=== PATIENT | female | born 1990 | race Caucasian/White ===

== ENCOUNTER 2017-05-30 19:11 | Observation (INO) | payer BC ==
[2016-09-04 20:00] VITALS: BP 118/70
[2017-05-30] MEDS ORDERED: RINGER'S SOLUTION,LACTATED 1,000 ML IV PRN (19:43)
[2017-05-30 20:07] LABS: Hematocrit 29.6 % (37.0-47.0); Hemoglobin 9.8 gm/dL (12.5-16.0); Mean Cell Volume 84.6 fl (78-100); Mean Corpuscular Hgb Conc 33.1 g/dl (32-36); Mean Platelet Volume 10.3 fl (6.0-9.5); Neutrophil # 7.2 K/mm3 (1.3-6.0); Neutrophil % 70.8 % (42-75.0); Platelet Count 143 K/mm3 (150-450); Red Cell Distribution Width 13.9 % (11.5-14.0); White Blood Count 10.1 K/mm3 (4.0-10.5)
[2017-05-30 20:10] LABS: Urine Appearance Clear; Urine Bacteria None Seen; Urine Bilirubin Negative (NEGATIVE); Urine Blood Negative /ul (NEGATIVE); Urine Color Yellow; Urine Ketone Negative (NEGATIVE); Urine Nitrite Negative (NEGATIVE); Urine Protein Negative (NEGATIVE); Urine RBC None Seen /hpf (0-5); Urine Specific Gravity 1.005 SP.GR. (1.005-1.010); Urine Urobilinogen Normal (NORMAL); Urine WBC None Seen /hpf (0-5); Urine pH 7.5 pH (5.0-7.0)
[2017-05-30] MEDS ORDERED: BETAMETH ACET/BETAMET SOD PHOS 6 MG/ML VIAL IM ONE (20:45)
[2017-05-30] MEDS ORDERED: DEXTROSE 5%-LACTATED RINGERS 1,000 ML IV PRN (20:51)
[2017-05-30] MEDS ORDERED: PENICILLIN G POTASSIUM 5 MILLIONUNT in DEXTROSE 5 % IN WATER 100 ML IV ONE ×2 (20:51)
[2017-05-30] MEDS ORDERED: MAGNESIUM SULFATE IN WATER 50 ML, MAGNESIUM SULFATE IN WATER 50 ML IV ONE ×2 (20:51)
[2017-05-30] MEDS ORDERED: MAGNESIUM SULFATE IN WATER 1,000 ML IV SCH (21:00)
[2017-05-30 21:10] LABS: Albumin * 2.8 gm/dl (3.4-5.0); Anion Gap 14.1 mmol/L (6.8-13.8); BUN/Creatinine Ratio 14.3 (9.0-21.6); Bilirubin, Total 0.2 mg/dL (0.0-1.1); Calcium * 8.4 mg/dL (7.9-10.9); Carbon Dioxide 25.9 mmol/L (24-32.6); Total Protein 5.9 gm/dL (6.2-8.2)
[2017-05-30 22:02] LABS: Cocaine Ur Negative (NEGATIVE); Urine Barbiturate Negative (NEGATIVE); Urine Benzodiazepines Negative (NEGATIVE); Urine Opiates Negative (NEGATIVE); Urine PCP Negative (NEGATIVE); Urine THC Negative (NEGATIVE)
[2017-05-31] MEDS ORDERED: PENICILLIN G POTASSIUM 2.5 MILLIONUNT in DEXTROSE 5 % IN WATER 100 ML IV SCH ×2 (00:52)
== END 2017-05-30 21:50 | disposition short-term general hospital (02) ==
LOC: OBCLINIC 19:11 → INTOOBSV 20:59 → OB 20:59
PROVIDERS: ADMIT Obstetrics & Gynecology; ATTEND Obstetrics & Gynecology
DX: O60.02 Preterm labor without delivery, second trimester (principal); Z3A.24 24 weeks gestation of pregnancy; O23.42 Unspecified infection of urinary tract in pregnancy, second trimester; O46.92 Antepartum hemorrhage, unspecified, second trimester; O99.012 Anemia complicating pregnancy, second trimester; O99.112 Other diseases of the blood and blood-forming organs and certain disorders involving the immune mechanism complicating pregnancy, second trimester; O99.332 Smoking (tobacco) complicating pregnancy, second trimester
CPT/HCPCS: 36415; 59025; 80053; 80307; 81001; 85025; 86850; 86900; 87081; 96374; 96375; G0378

== ENCOUNTER 2017-07-12 13:28 | Observation (INO) | payer BC ==
[2017-07-12] MEDS ORDERED: RINGER'S SOLUTION,LACTATED 1,000 ML IV ONE (14:05)
[2017-07-12] MEDS ORDERED: MAGNESIUM SULFATE IN WATER 1,000 ML IV PRN (14:06)
[2017-07-12] MEDS ORDERED: MAGNESIUM SULFATE IN WATER 50 ML, MAGNESIUM SULFATE IN WATER 50 ML IV ONE ×2 (14:06)
[2017-07-12] MEDS ORDERED: PENICILLIN G POTASSIUM 5 MILLIONUNT in DEXTROSE 5 % IN WATER 100 ML IV ONE ×2 (14:07)
[2017-07-12] MEDS ORDERED: BETAMETH ACET/BETAMET SOD PHOS 6 MG/ML VIAL IM ONE (14:15)
[2017-07-12] MEDS ORDERED: BETAMETH ACET/BETAMET SOD PHOS 6 MG/ML VIAL ONE (14:18)
[2017-07-12] MEDS ORDERED: MAGNESIUM SULFATE IN WATER 50 ML IV ONE (14:22)
[2017-07-12] MEDS ORDERED: RINGER'S SOLUTION,LACTATED 1,000 ML IV PRN (14:57)
[2017-07-12] MEDS ORDERED: FLUCONAZOLE 150 MG TABLET PO ONE (15:30)
[2017-07-12] MEDS ORDERED: FLUCONAZOLE 40 MG/ML PO ONE (16:30)
[2017-07-12] MEDS ORDERED: CALCIUM GLUCONATE 4.65 MEQ/10 ML VIAL IV ONE (17:05)
[2017-07-12 18:07] VITALS: BP 126/90
--- NOTE | 2017-07-15 11:53 | DS ---
(1) labor in third trimester Problem: Acute (2) Short cervix affecting Problem: Acute Description of Stay: Patient is a 27 yo, CF, at 29 5/7 weeks with history of recurrent UTI in , LEEP, short cervix and labor. She had received one course of betamethasone x 2 doses at 23.5 w due to labor. Presented with contractions. Her FFN was positive. Ob ultrasound showed cervical length of 1.27 cm with funneling. She received penicillin for GBS prophylaxis, one dose of betamethasone for lung maturity and magnesium sulphate 4 g load and 2 g/hr maintenance for neuroprotection/tocolysis. She was transferred to [facility] due to persistent contractions and feeling pelvic pressure in stable condition. Procedures Performed: none Discharge Disposition: [facility] Disposition: [facility] Condition: Stable Discharge Activity: Other - bed rest during ambulance transport Discharge Diet: NPO Referrals: Rachelle Almodovar FNP [Primary Care Provider] - Complete Home Medications List: Complete Home Medication List: Vits96/Iron Fum/Folic [ S] 1 tab PO DAILY 05/30/17 Nitrofurantoin/Nitrofuran Mac [Macrobid] 100 mg PO DAILY 07/12/17 Progesterone [Progesterone Vaginal Suppository] 1 dose VG HS 07/12/17
== END 2017-07-12 17:10 | disposition short-term general hospital (02) ==
LOC: OBCLINIC 13:28 → INTOOBSV 14:15 → OB 14:15
PROVIDERS: ADMIT Obstetrics & Gynecology; ATTEND Obstetrics & Gynecology
DX: O60.03 Preterm labor without delivery, third trimester (principal); Z3A.30 30 weeks gestation of pregnancy; O23.43 Unspecified infection of urinary tract in pregnancy, third trimester; O23.593 Infection of other part of genital tract in pregnancy, third trimester; O26.873 Cervical shortening, third trimester; Z87.891 Personal history of nicotine dependence
CPT/HCPCS: 59025; 76817; 81001; 82731; 87081; 87086; 96365; 96372; 96375; G0378

== ENCOUNTER 2017-07-26 23:12 | Inpatient (IN) | payer BC ==
[2017-07-26] MEDS ORDERED: PENICILLIN G POTASSIUM 5 MILLIONUNT in DEXTROSE 5 % IN WATER 100 ML IV ONE ×2 (23:27)
[2017-07-26] MEDS ORDERED: BETAMETH ACET/BETAMET SOD PHOS 6 MG/ML VIAL IM ONE (23:28)
[2017-07-26] MEDS ORDERED: MAGNESIUM SULFATE IN WATER 50 ML, MAGNESIUM SULFATE IN WATER 50 ML IV ONE ×2 (23:55)
[2017-07-27] MEDS ORDERED: MAGNESIUM SULFATE IN WATER 1,000 ML IV PRN (00:13)
[2017-07-27] MEDS ORDERED: DEXTROSE 5%-LACTATED RINGERS 1,000 ML IV PRN (00:21)
== END 2017-07-27 00:55 | disposition short-term general hospital (02) | DRG 781 ==
LOC: OBCLINIC 23:12 → OB 23:23
PROVIDERS: ADMIT Obstetrics & Gynecology; ATTEND Obstetrics & Gynecology
PROC: 4A1HXCZ Monitoring of Products of Conception, Cardiac Rate, External Approach (ICD-10-PCS; principal; 2017-07-26)
DX: O42.913 Preterm premature rupture of membranes, unspecified as to length of time between rupture and onset of labor, third trimester (principal); O23.43 Unspecified infection of urinary tract in pregnancy, third trimester; O99.333 Smoking (tobacco) complicating pregnancy, third trimester; Z3A.32 32 weeks gestation of pregnancy

== ENCOUNTER 2019-03-19 06:22 | Inpatient (IN) ==
[2019-03-19] MEDS: RINGER'S SOLUTION,LACTATED 1,000 ML IV PRN ×2 (06:40→07:45)
[2019-03-19 07:22] LABS: Urine Bilirubin Negative (NEGATIVE); Urine Blood 250 /ul (NEGATIVE); Urine Ketone Negative (NEGATIVE); Urine Nitrite Negative (NEGATIVE); Urine Protein Negative (NEGATIVE); Urine Specific Gravity <=1.005 SP.GR. (1.005-1.010); Urine Urobilinogen Normal (NORMAL); Urine pH 6.5 pH (5.0-7.0)
[2019-03-19] MEDS ORDERED: AMPICILLIN SODIUM 2,000 MG in NORMAL SALINE 100 ML IV SCH (07:30)
[2019-03-19] MEDS ORDERED: AZITHROMYCIN 250 MG TABLET PO ONE (07:31)
[2019-03-19] MEDS ORDERED: BETAMETHASONE ACETATE,SOD PHOS 6 MG/ML VIAL IM ONE (07:32)
[2019-03-19 07:37] LABS: Cocaine Ur Negative (NEGATIVE); Urine Barbiturate Negative (NEGATIVE); Urine Benzodiazepines Negative (NEGATIVE); Urine Opiates Negative (NEGATIVE); Urine PCP Negative (NEGATIVE); Urine THC Negative (NEGATIVE)
[2019-03-19 07:44] LABS: Urine Appearance Slightly Cloudy (CLEAR); Urine Bacteria None Seen; Urine Color Yellow; Urine RBC 0-5 /hpf (0-5); Urine WBC 0-5 /hpf (0-5)
[2019-03-19 07:54] LABS: Hematocrit 29.2 % (37.0-47.0); Hemoglobin 9.5 gm/dL (12.5-16.0); Mean Cell Volume 83.4 fl (78-100); Mean Corpuscular Hemoglobin 27.1 pg (27-31); Mean Corpuscular Hgb Conc 32.5 g/dl (32-36); Neutrophil # 5.1 K/mm3 (1.3-6.0); Neutrophil % 58.5 % (42-75.0); Platelet Count 109 K/mm3 (150-450); Red Cell Distribution Width 13.4 % (11.5-14.0); White Blood Count 8.7 K/mm3 (4.0-10.5)
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
[2019-03-19 07:56] LABS: Total Cells Counted 100
[2019-03-19] MEDS ORDERED: NALOXONE HCL 1 MG/1 ML SYRG IV PRN (07:58)
[2019-03-19] MEDS ORDERED: BUPIVACAINE HCL/0.9 % NACL/PF 250 ML EP PRN (07:58)
[2019-03-19] MEDS ORDERED: ONDANSETRON HCL/PF 2 MG/ML VIAL IV PRN (07:58)
[2019-03-19] MEDS ORDERED: fentaNYL CITRATE/PF 50 MCG/ML AMPUL IT SCH (08:00)
[2019-03-19 08:10] LABS: Albumin * 2.3 gm/dl (3.4-5.0); Anion Gap 13.7 mmol/L (6.8-13.8); BUN/Creatinine Ratio 7.5 (9.0-21.6); Bilirubin, Total 0.2 mg/dL (0.0-1.1); Ca. Corrected For Albumin 9.6 mg/dL (8.4-10.2); Calcium * 8.6 mg/dL (7.9-10.9); Carbon Dioxide 23.7 mmol/L (24-32.6); Potassium 3.4 mmol/L (3.4-4.6); Total Protein 5.6 gm/dL (6.2-8.2)
[2019-03-19 08:24] LABS: Eosinophil 1 % (0-3); Lymphocyte 26 % (20-51); Monocyte 8 % (0-9); Neutrophil 65 % (42-75); Neutrophil # 5.7 K/mm3 (1.3-6.0); Platelet Estimate Normal (NORMAL); RBC Morphology Normal (NORMAL)
[2019-03-19 08:36] VITALS: BP 127/82
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
--- NOTE | 2019-03-19 08:38 | ANES ---
Post Anesthesia Assessment - Vital Signs Vitals: Last Vital Signs Temp 36.6 C 03/19/19 08:32 Pulse 101 H 03/19/19 08:32 Resp 18 03/19/19 08:32 BP 127/82 03/19/19 08:32 Pulse Ox 100 03/19/19 08:32 Airway Patency: Normal - Mental Status Level Of Consciousness: Awake - Pain Level Pain Score: 2 - N/V Assessment Nausea/Vomiting Presence: None Dehydration:: No
--- NOTE | 2019-03-19 08:38 | ANES ---
Post Anesthesia Discharge - Transfer of Care Transfer of Care handoff given to nurse: Yes - Anesthesia Post Op Note Anesthesia Post Op Note: Care transferred to OB RN
--- NOTE | 2019-03-19 08:41 | ANES ---
Anesthesia Procedure Note Procedure Note: ANESTHESIA PROCEDURE NOTE Date of Procedure: 03/19/2019 Time of procedure: 06 11. Performed by: Alex Reddy CRNA Sponsorship Coordinator: None. Preprocedure diagnosis: Active labor. Post procedure diagnosis: Same. Procedure: Insertion of labor epidural. Indications: The patient is a 29-year-old multigravida female in active labor requesting labor epidural for pain management. Findings: See below. Details of the procedure: The patient was placed in a sitting position. Back was prepped with DuraPrep. Patient was then draped in a sterile fashion. Lidocaine 1% was infiltrated to the skin and subcutaneous tissues at the level of the L3 4 interspace. The epidural space was identified using a 18-gauge Tuohy needle with [id number] technique. 20 mcg fentanyl was given intrathecally using a 27 ga. spinal needle. Epidural catheter was inserted without difficulty. Negative test dose was elicited using 3 mL of 2% preservative-free lidocaine plus epinephrine 1 200,000. The epidural catheter was then taped and secured in place. EBL: Minimal. Fluids: N/A. Specimen: N/A. Post procedure condition: The patient tolerated the procedure well. No complications were noted. Thank you for this consultation. Fenton CRNA
[2019-03-19] MEDS ORDERED: IBUPROFEN 800 MG TABLET PO PRN (09:04)
[2019-03-19] MEDS ORDERED: diphenhydrAMINE HCL 25 MG CAPSULE PO PRN (09:04)
[2019-03-19] MEDS ORDERED: HYDROCORTISONE 30 APPL TUBE TP PRN (09:04)
[2019-03-19] MEDS ORDERED: oxyCODONE HCL/ACETAMINOPHEN 1 TAB TABLET PO PRN ×2 (09:04)
[2019-03-19] MEDS ORDERED: GLYCERIN/WITCH HAZEL LEAF 40 APPL BOX TP PRN (09:04)
[2019-03-19] MEDS ORDERED: BISACODYL 10 MG SUPP.RECT RC PRN (09:04)
[2019-03-19] MEDS ORDERED: BENZOCAINE/MENTHOL 81 SPRAY CAN TP PRN (09:04)
[2019-03-19] MEDS ORDERED: OXYTOCIN/DEXTROSE 5%-WATER 30 UNITS/500 ML BAG IV ONE (09:04)
[2019-03-19] MEDS ORDERED: SENNOSIDES 8.6 MG TABLET PO PRN (09:04)
[2019-03-19 09:36] LABS: Random Urine Total Protein 21.8 mg/dL (0-12)
[2019-03-19 09:41] LABS: Hematocrit 29.1 % (37.0-47.0); Hemoglobin 9.4 gm/dL (12.5-16.0); Mean Cell Volume 82.7 fl (78-100); Mean Corpuscular Hemoglobin 26.7 pg (27-31); Mean Corpuscular Hgb Conc 32.3 g/dl (32-36); Mean Platelet Volume 10.4 fl (8-12.5); Neutrophil # 5.8 K/mm3 (1.3-6.0); Neutrophil % 67.1 % (42-75.0); Platelet Count 150 K/mm3 (150-450); Red Blood Count 3.52 M/mm3 (4.2-5.4); Red Cell Distribution Width 13.5 % (11.5-14.0); White Blood Count 8.6 K/mm3 (4.0-10.5)
[2019-03-19 09:51] LABS: Prothrombin Time (Patient) 9.5 Seconds (9.1-10.7)
[2019-03-19 09:52] LABS: INR 0.96 INR (0.92-1.08); Partial Thrombolplastin Time 25.8 Seconds (24-32)
[2019-03-19 10:32] LABS: Hematocrit 32.8 % (37.0-47.0); Hemoglobin 10.3 gm/dL (12.5-16.0); Mean Cell Volume 86.8 fl (78-100); Mean Corpuscular Hemoglobin 27.2 pg (27-31); Mean Corpuscular Hgb Conc 31.4 g/dl (32-36); Mean Platelet Volume 10.2 fl (8-12.5); Neutrophil % 75.6 % (42-75.0); Platelet Count 119 K/mm3 (150-450); Red Blood Count 3.78 M/mm3 (4.2-5.4); Red Cell Distribution Width 13.7 % (11.5-14.0); White Blood Count 10.6 K/mm3 (4.0-10.5)
--- NOTE | 2019-03-19 11:00 | OR ---
Operative Report - Dictated Report Narrative: Preoperative diagnosis: IUP @ 33w 4d, PPROM, labor, placental abruption Postoperative diagnosis: IUP @ 33w 4d, PPROM, labor, placental abruption, DIC Date of delivery: 03/19/19 Time of delivery: 1005 Gender: male weight: 2282 grams APGARS: 7/8 Procedure: STAT primary delivery Anesthesia: epidural and local Anesthesiologist: Alex Reddy CRNA Indication for the procedure: The patient presented to labor and delivery complaining of regular contractions. Her cervix was examined and she was 1 cm dilated. The patient then reported that while she was registering for admission she had loss of fluid. She had two positive nitrazines and she continued to leak amniotic fluid. I then evaluated the patient with the goal to transfer her to [place] but when I checked the patient her cervix had changed to 3-4 cm in less than an hour and thus I did not feel comfortable transferring the patient in active labor. I gave her a dose of betamethasone for lung maturity. In addition, I gave antibiotics for PPROM. She received two grams of ampicillin as well as one gram of azithromycin orally. The patient also reported the possibility that she fell out of her bed but she is unsure because she sleeps walks. I noted that the patient's diastolic blood pressure was 93. For this reason I checked pre-eclampsia labs. Her hemoglobin was 9 and her platelets were 109. Her UP:CR was 1557mg consistent with mild pre-eclampsia. The patient started reporting that she was not feeling well and started looking very pale. I repeated the hemoglobin and it was stable. The patient's platelets were 150 which did not make sense. At this time I checked fibrinogen and coagulation parameters all of which were normal. The patient's heart rate increased to the 180s-190s for a few minutes so at this time I called internal medicine to evaluate the patient. An EKG was obtained which was normal. Then the heart rate decreased to the 90s. At this time given this as well as an abruption pattern on the FHT the decision was made to proceed with STAT delivery. FHT had a normal baseline, no decelerations, and accelerations. The patient started having changes in her heart rate and blood pressure and thus a unit of blood was ordered. She was taken to the operating room for a STAT delivery. The patient had already had an epidural during labor. I injected 20 mL of lidocaine with epinephrine following the path of the incision that was to be made. A Pfannestiel skin incision was made. The tissue was noted to be very edematous consistent with the diagnosis of pre-eclampsia. The incision was carried through the subcutaneous tissue. The fascia was incised in the midline. The fascia was opened bluntly given the emergent nature of the procedure. The peritoneum was entered bluntly. The head was delivered followed by the rest of the body. A loose nuchal cord was noted and it was reduced. The cord was clamped and cut and the was handed off to the attending pediatric staff. An X-large Agusto retractor was placed. The placenta was delivered by expression and appeared intact. A large clot was noted on the placenta. A branch of the left uterine artery was pumping profusely and thus a ring forcep was placed on it to control the bleeding. The uterine incision was closed with 0-vicryl in a running locking fashion. A second imbricating layer was placed for additional hemostasis. A defect was noted in the left broad ligament. Bowel epiploica was coming through this defect. A lap was placed in the abdomen to keep the bowel away from the defect in the broad ligament. The defect was closed and this area continued to bleed. Pressure was held for two minutes and the bleeding continued. Additional figure of eight sutures were placed. Since the bleeding continued this time pressure was held for 5 minutes. At the same time the patient was noted to be bleeding from her IV sites consistent with the diagnosis of DIC. At this time I informed the team that the patient needed to be air flown to [place] to an ICU due to the diagnosis of DIC. I then placed Leeanne on the left side and also for the entire length of the uterine incision. There was no longer a defect on the broad ligament at this time. Additional bleeding was noted but it had definitely slowed down significantly. Surgicel was placed over both corners of the uterine incision and at this time hemostasis was confirmed. All laps from the abdomen were removed an d counts were correct. The fascia was made hemostatic. The rectus muscles were also made hemostatic. The fascia was closed with 1-0 vicryl. At times gaps were noted in the fascia and thus the incison was carried backwards and forward to ensure appropriate closure of the fascia. The subcutaneous tissue was irrigated. The subcutaneous tissue was made hemostatic. The skin was closed with [place] to expedite transfer of the patient to [place]. A pressure dressing was placed over the incision. All sponge, lap, and needle counts were correct. The patient tolerated the procedure well. She was transported and air flown to [place]. EBL: 1200 mL Complications: none Specimens: placenta
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
--- NOTE | 2019-03-19 11:21 | ANES ---
Post Anesthesia Discharge - Transfer of Care Transfer of Care handoff given to nurse: Yes - Pt. care transferred to transport team for transfer to the [facility]
--- NOTE | 2019-03-19 11:21 | ANES ---
Post Anesthesia Assessment - Vital Signs Vitals: Last Vital Signs Temp 36.6 C 03/19/19 08:32 Pulse 101 H 03/19/19 08:32 Resp 18 03/19/19 08:32 BP 127/82 03/19/19 08:32 Pulse Ox 100 03/19/19 08:32 Airway Patency: Normal - Mental Status Level Of Consciousness: Awake - Pain Level Pain Score: 3 - N/V Assessment Nausea/Vomiting Presence: None Dehydration:: No
[2019-03-19] MEDS ORDERED: DOCUSATE SODIUM 100 MG CAPSULE PO SCH (21:00)
--- NOTE | 2019-03-21 13:29 | DS ---
(1) Placental abruption Problem: Acute (2) DIC (disseminated intravascular coagulation) Problem: Acute (3) Status post primary low transverse section Problem: Acute Description of Stay: The patient was admitted for PPROM and labor. Her condition began to deteriorate after she was diagnosed with pre-eclampsia as well as placental abruption. She was taken for a STAT delivery. During her delivery she was not ed to be bleeding from her IV sites and there was bleeding from the left broad ligament as well. This was consistent with DIC. For this reason the air flight crew was called to transfer the patient emergently to [place] to the ICU Procedures Performed: see notes below List Procedures: Primary delivery Results and Findings: Lab Pending Results 03/19/19 06:41: Urine Color Yellow, Urine Appearance Slightly cloudy, Urine pH 6.5, Ur Specific [place] <=1.005, Urine Protein Negative, Urine Glucose (UA) Negative, Urine Ketones Negative, Urine Blood 250 H, Urine Nitrate Negative, Urine Bilirubin Negative, Urine Urobilinogen Normal, Ur Leukocyte Esterase 75 H, Urine RBC 0-5, Urine WBC 0-5, Ur Epithelial Cells 5-10 H, Urine Bacteria None seen, Urine Culture Comments No culture indicated 03/19/19 06:41: Urine Opiates Screen Negative, Barbiturate Screen Negative, Ur Phencyclidine Scrn Negative, Urine Amphetamine Negative, U Benzodiazepines Scrn Negative, Urine Cocaine Screen Negative, Urine Marijuana (THC) Negative 03/19/19 07:50: WBC 8.7, RBC 3.50 L, Hgb 9.5 L, Hct 29.2 L, MCV 83.4, MCH 27.1, MCHC 32.5, RDW 13.4, Plt Count 109 L, MPV 10.0, Immature Gran % (Auto) 1.50 H, Immature Gran # (Auto) 0.13 H, Neutrophils % 58.5, Neutrophils % (Manual) 65, Lymphocytes % 20.7, Lymphocytes % (Manual) 26, Monocytes % 18.2 H, Monocytes % (Manual) 8, Eosinophils % 0.9, Eosinophils % (Manual) 1, Basophils % 0.2, Nucleated RBC % 0.0, Neutrophils # 5.1, Neutrophils # (Manual) 5.7, Lymphocytes # 1.80, Lymphocytes # (Manual) 2.3, Monocytes # 1.6 H, Monocytes # (Manual) 0.7, Eosinophils # 0.1, Eosinophils # (Manual) 0.1, Absolute Basophils 0.0, Platelet Estimate Normal, RBC Morphology Normal 03/19/19 07:50: Blood Type A Positive, Antibody Screen Negative, Crossmatch See Detail 03/19/19 07:50: Sodium 139, Plasma Sodium 139, Potassium 3.4, Chloride 105, Carbon Dioxide 23.7 L, Anion Gap 13.7, BUN 4, Creatinine 0.53, Est GFR (Non-Af Amer) 147 H, BUN/Creatinine Ratio 7.5 L, Random Glucose 84, Calcium 8.6, Calcium Adj for Albumin 9.6, Total Bilirubin 0.2, AST 16, ALT 13 L, Alkaline Phosphatase 150, Total Protein 5.6 L, Albumin 2.3 L 03/19/19 09:16: Ur Random Creatinine 14.0 L, U Random Total Protein 21.8 H, U [place] Prot/Creat Ratio 1557 H 03/19/19 09:38: PT 9.5, INR (Anticoag Therapy) 0.96, PTT (Levy) 25.8 03/19/19 09:38: Fibrinogen 321 03/19/19 09:38: WBC 8.6, RBC 3.52 L, Hgb 9.4 L, Hct 29.1 L, MCV 82.7, MCH 26.7 L, MCHC 32.3, RDW 13.5, Plt Count 150, MPV 10.4, Immature Gran % (Auto) 1.30 H, Immature Gran # (Auto) 0.11 H, Neutrophils % 67.1, Lymphocytes % 16.4 L, Monocytes % 14.0 H, Eosinophils % 0.9, Basophils % 0.3, Nucleated RBC % 0.0, Neutrophils # 5.8, Lymphocytes # 1.41 L, Monocytes # 1.2 H, Eosinophils # 0.1, Absolute Basophils 0.0 03/19/19 10:25: WBC 10.6 H D, RBC 3.78 L, Hgb 10.3 L, Hct 32.8 L, MCV 86.8, MCH 27.2, MCHC 31.4 L, RDW 13.7, Plt Count 119 L, MPV 10.2, Immature Gran % (Auto) 1.70 H, Immature Gran # (Auto) 0.18 H, Neutrophils % 75.6 H, Lymphocytes % 13.0 L, Monocytes % 8.9, Eosinophils % 0.4, Basophils % 0.4, Nucleated RBC % 0.0, Neutrophils # 8.0 H, Lymphocytes # 1.38 L, Monocytes # 0.9, Eosinophils # 0.0, Absolute Basophils 0.0 03/19/19 12:00: Pathology Specimen Spec to path Discharge Location: [facility] Disposition: Short Term Hospital Inpatient Condition: Stable Discharge Activity: Other Discharge Diet: NPO Referrals: Rachelle Almodovar FNP [Primary Care Provider] - Complete Home Medications List: Complete Home Medication List: pediatric multivitamin no.28 chewable tablet 1 tab PO DAILY tab 08/29/18 ferrous sulfate 325 mg (65 mg iron) tablet 325 mg PO DAILY #30 tab 02/09/19 progesterone micronized 200 mg capsule 200 mg VG HS 02/09/19
== END 2019-03-19 11:10 | disposition short-term general hospital (02) | DRG 786 ==
LOC: OBCLINIC 06:22 → OB 06:22 → OBSVTOIN 07:25
PROVIDERS: ADMIT Obstetrics & Gynecology; ATTEND Obstetrics & Gynecology
CPT/HCPCS: 36415; 59025; 74000; 74018; 80053; 80307; 81001; 82570; 84155; 84156; 85025; 85384; 85610; 85730; 86850; 87086; 88307; 93005; P9016